=== PATIENT | female | born 1985 | race Caucasian/White ===

== ENCOUNTER 2020-03-05 18:52 | Emergency (ER) | payer SELFPAY ==
[~2020-03-05] VITALS: Ht 167.6 cm; Wt 75.7 kg
[2020-03-05 20:19] LABS: Basophils # (auto) 0.1 10 ^3/uL (0-0.2); Basophils % (auto) 0.8 % (0.0-2.0); Eosinophils # (auto) 0.2 10 ^3/uL (0-0.8); Eosinophils % (auto) 2.2 % (0.0-7.0); Hematocrit 43.9 % (36.0-46.0); Hemoglobin 14.8 g/dL (12.2-16.2); Lymphocytes # (auto) 3.2 10 ^3/uL (0.4-5.4); Lymphocytes % (auto) 28.8 % (10.0-50.0); Mean Corpuscular Hemoglobin 30.3 pg (28.0-32.0); Mean Corpuscular Hgb Conc. 33.6 g/dL (32.0-36.0); Mean Corpuscular Volume 90.3 fL (80.0-100.0); Monocytes # (auto) 0.7 10 ^3/uL (0-1.3); Monocytes % (auto) 6.3 % (0.0-12.0); Neutrophils # (auto) 6.9 10 ^3/uL (1.6-8.6); Neutrophils % (auto) 61.9 % (37.0-80.0); Nucleated Red Blood Cells % 0.1 %; Platelet Count (auto) 334 10^3/uL (140-450); Red Blood Cells 4.86 10^6/uL (4.0-5.20); Red Cell Distribution Width 12.8 % (11.8-14.3); White Blood Cell 11.1 10^3/uL (4.4-10.8)
[2020-03-05 20:35] LABS: Albumin 3.5 g/dL (3.4-5.0); BUN/Creatinine Ratio 13.6; Calcium 8.8 mg/dL (8.5-10.1); Magnesium 2.3 mg/dL (1.6-2.6); Potassium 3.7 mmol/L (3.5-5.1)
[2020-03-05 20:43] LABS: Bilirubin, Total 0.3 mg/dL (0.2-1.0); Total Protein 8.6 g/dL (6.4-8.2)
[2020-03-05 21:52] VITALS: BP 137/84
[2020-03-06 08:52] LABS: Urine Bacteria FEW /hpf (None Seen); Urine Blood Negative /uL (Negative); Urine Mucus FEW (None Seen); Urine Specific Gravity 1.022 (1.001-1.035); Urine WBC 4 /hpf (0 - 5)
== END 2020-03-05 21:57 | disposition home or self-care (01) ==
LOC: ER 18:52
DX: K58.0 Irritable bowel syndrome with diarrhea (principal)
CPT/HCPCS: 36415; 74176; 80053; 81001; 82150; 83690; 83735; 85025

== ENCOUNTER 2022-10-21 00:15 | Emergency (ER) | payer BC, MEDICAID ==
[~2022-10-21] VITALS: Ht 167.6 cm; Wt 70.5 kg
[2022-10-21] MEDS ORDERED: diphenhdrAMINE HCL 25 MG CAP PO ONE (00:45)
[2022-10-21] MEDS ORDERED: DexAMETHasone SOD PHOS 10MG/1ML VIAL INJ IM ONE (00:45)
[2022-10-21] MEDS ORDERED: DICYCLOMINE HCL 10 MG CAP PO ONE (01:15)
[2022-10-21] MEDS ORDERED: ONDANSETRON ODT 4 MG TAB PO ONE (01:15)
[2022-10-21] MEDS ORDERED: ONDA-144 PO ×3 (01:52→16:09)
[2022-10-21] MEDS ORDERED: NITR-87 PO ×3 (01:52→16:09)
[2022-10-21 02:13] VITALS: BP 97/63
== END 2022-10-21 02:26 | disposition home or self-care (01) ==
LOC: ER 00:15
DX: T36.8X5A Adverse effect of other systemic antibiotics, initial encounter (principal); Y92.89 Other specified places as the place of occurrence of the external cause; Z90.49 Acquired absence of other specified parts of digestive tract; Z98.890 Other specified postprocedural states
CPT/HCPCS: 96372; 99284; J0500; J1100; Q0162

== ENCOUNTER 2025-04-21 09:12 | Outpatient (CLI) | payer BC ==
[~2025-04-21 09:12] MED LIST: NITR-87 PO; ONDA-144 PO
[2025-04-21 10:18] LABS: Hematocrit 43.2 % (36.0-46.0); Hemoglobin 15.1 g/dL (12.2-16.2); Mean Corpuscular Hemoglobin 30.5 pg (28.0-32.0); Mean Corpuscular Volume 87.5 fL (80.0-100.0); Nucleated Red Blood Cells % 0.1 %
[2025-04-21 10:43] LABS: Follicle Stimulating Hormone 3.12 IU/L (SEE BELOW)
== END 2025-04-21 17:00 | disposition home or self-care (01) ==
LOC: LAB 09:12
PROVIDERS: ATTEND Obstetrics & Gynecology
DX: N95.1 Menopausal and female climacteric states (principal); N93.9 Abnormal uterine and vaginal bleeding, unspecified; R10.2 Pelvic and perineal pain
CPT/HCPCS: 36415; 82670; 83001; 83002; 84403; 84443; 85025